=== PATIENT | female | born 1990 | race African-American/Black ===

== ENCOUNTER 2017-08-30 14:44 | Emergency (ER) | payer MEDICAID ==
[~2017-08-30] VITALS: Ht 152.4 cm; Wt 66.0 kg
[2017-08-30 14:49] VITALS: BP 112/66
== END 2017-08-30 18:31 | disposition left against medical advice (07) ==
LOC: ER 15:03
DX: M54.9 Dorsalgia, unspecified (principal); Z53.21 Procedure and treatment not carried out due to patient leaving prior to being seen by health care provider